=== PATIENT | female | born 1965 | race Asian ===

== ENCOUNTER 2017-10-05 18:18 | Outpatient (CLI) | payer OTHER ==
[~2017-10-05 18:18] MED LIST: ADIPEX PO; HYDR25TA60 PO
== END 2017-10-05 19:25 | disposition home or self-care (01) ==
LOC: LAB 18:18
DX: R07.89 Other chest pain (principal)
CPT/HCPCS: 84484

== ENCOUNTER 2018-07-29 14:09 | Outpatient (CLI) | payer OTHER | END 2018-07-29 20:37 | disposition home or self-care (01) | LOC: MAMMO 14:09 | DX: Z12.31 Encounter for screening mammogram for malignant neoplasm of breast (principal); Z13.820 Encounter for screening for osteoporosis; Z78.0 Asymptomatic menopausal state ==

== ENCOUNTER 2018-08-10 10:15 | Outpatient (CLI) | payer OTHER | END 2018-08-10 23:01 | disposition home or self-care (01) | LOC: MAMMO 10:15 | DX: R92.8 Other abnormal and inconclusive findings on diagnostic imaging of breast (principal) ==